=== PATIENT | female | born 1995 | race Caucasian/White ===

== ENCOUNTER → 2018-03-30 | Outpatient (CLI) | payer OTHER ==
--- NOTE | 2018-03-31 07:58 | MRI ---
EXAM DESCRIPTION: Lumbar Spine w/o Contrast : Magnetic Resonance Imaging. CLINICAL HISTORY: CHRONIC BACK PAIN COMPARISON: None. TECHNIQUE: Multiplanar, multiple standard sequences, non contrast MRI, lumbar spine. FINDINGS: At L3-4, L4-5, and L5-S1 disc space levels, AP canal diameter is 12 mm. This indicates mild central narrowing. 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 Normal signal in the disks, and disc spaces are preserved. Normal signal in the facet joints, and posterior flavum ligaments; no hypertrophy. Bilateral foramina are patent. Normal canal diameter at the remaining levels. Normal signal in the discs and disc spaces are preserved. Flavum ligaments and facet joints are unremarkable. Bilateral foramina are patent at these levels. Well-circumscribed hyperintense signal in the T11 vertebral body on T1 and T2 sequences, dark on FLAIR sequences, consistent with a hemangioma. Minimal kyphosis of the upper spine. Paravertebral soft tissues are unremarkable.. Normal marrow signal in the remaining vertebral bodies and the posterior elements. Vertebral bodies are not compressed at any level. IMPRESSION: 1. 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 Discs and posterior elements are unremarkable. 2. No other significant findings on this study. Electronically signed by: Tony Bush MD 03/31/2018 7:57 AM CDT
== END ==
LOC: MRI 10:00
PROVIDERS: ATTEND Family Medicine
DX: M54.16 Radiculopathy, lumbar region (principal); M54.9 Dorsalgia, unspecified

== ENCOUNTER → 2018-04-04 | Outpatient (CLI) | payer OTHER | LOC: LAB.O 17:25 | PROVIDERS: ATTEND Family Medicine | DX: N91.2 Amenorrhea, unspecified (principal); Z33.1 Pregnant state, incidental ==

== ENCOUNTER 2018-07-28 20:47 | Emergency (ER) | payer OTHER ==
[2018-07-28 21:29] VITALS: TEMP 96.7
--- NOTE | 2018-07-28 21:43 | ED.PDOC ---
History of Present Illness - General Chief Complaint: Syncope/Near Syncope Stated Complaint: syncope Time Seen by Provider: 07/28/18 21:37 Source: patient, family Exam Limitations: no limitations - History of Present Illness Initial Comments: patient comes in today for syncope. Patient has had multiple episodes of syncope in the past and was diagnosed with postural orthostatic tachycardia syndrome. 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 Patient states this episode however lasted longer than usual and she was left afterwards with feeling dazed and confused for several minutes. Patient was taking a bath when she lost consciousness per her friend for several minutes. She had no loss of bowel or bladder. On awakening however she seemed to not be able to speak or open her eyes for several minutes. Patient states she was aware of what was going on but could not respond. She did not have any chest pain, shortness of breath, nausea or vomiting. She has a little bit of abdominal discomfort suprapubically that she has not had any contractions or vaginal bleeding. Positive movement. Patient states she is often had these episodes but when she called her OB doctor they did ask her to come to the emergency room. Timing/Prior Episodes: recent history Precipitating Factors: none Context: sitting, other - in bath Loss of Consciousness: prolonged (minutes) Current Symptoms: back to normal Allergies/Adverse Reactions: Allergies NO KNOWN ALLERGY Allergy (Verified 03/02/18 13:05) Review of Systems - Review of Systems Constitutional: States: no symptoms reported. Denies: chills, fever, weakness EENTM: States: nose congestion. Denies: ear pain, throat pain Respiratory: States: cough - better now but was sick this last week. Denies: short of breath, wheezing Cardiology: States: syncope Gastrointestinal/Abdominal: States: no symptoms reported. Denies: abdominal pain, constipation, diarrhea, nausea, vomiting Neurological: States: see HPI Past Medical History (General) - Patient Medical History Hx Seizures: No Hx Stroke: No Hx Dementia: No Hx Asthma: No Hx of COPD: No Hx Cardiac Disorders: No Hx Congestive Heart Failure: No Hx Pacemaker: No Hx Hypertension: No Hx Thyroid Disease: Yes Hx Diabetes: No Hx Gastroesophageal Reflux: No Hx Renal Disease: No Hx Cancer: No Hx of HIV: No Hx Hepatitis C: No Hx MRSA: No Surgical History: other - Vaccination History Hx Tetanus, Diphtheria Vaccination: No Hx Influenza Vaccination: No Hx Pneumococcal Vaccination: No - Social History Hx Tobacco Use: No Hx Chewing Tobacco Use: No Hx Alcohol Use: No Hx Substance Use: No Hx Substance Use Treatment: No Hx Depression: No Hx Physical Abuse: No Hx Emotional Abuse: No Hx Suspected Abuse: No - Female History Patient is a Female of Child Bearing Age (10 -59 yrs old): Yes Hx Last Menstrual Period: 01/30/18 Patient : Yes Hx Gestational Age: 20 Physical Exam - Physical Exam General Appearance: Alert, No apparent distress Eyes, Ears, Nose, Throat Exam: PERRL/EOMI, normal ENT inspection, TMs normal, pharynx normal Neck: non-tender, full range of motion, supple, normal inspection Cardiovascular/Respiratory: regular rate, rhythm, no M/R/G, normal peripheral pulses, no JVD, normal breath sounds Gastrointestinal/Abdominal: normal bowel sounds, non tender, soft Extremity: non-tender, normal inspection 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 Exam: normal hearing, normal speech Coordination/Gait: normal finger to nose, normal gait, negative Romberg's sign Motor/Sensory: no motor deficit, no sensory deficit Skin Exam: normal color Progress - Progress Progress: 07/28/18 23:27 patient is asymptomatic now and will let her be discharge home to follow up on Monday with her OB - Results/Orders Results/Orders: 07/28/18 21:37 EKG Assessment ONCE 07/28/18 21:45 EKG STAT Laboratory Results WBC 12.1 K/mm3 (4.8-10.8) H 07/28/18 21:45 RBC 3.69 M/mm3 (4.20-5.40) L 07/28/18 21:45 Hgb 11.1 gm/dL (12.0-16.0) L 07/28/18 21:45 Hct 33.0 % (36.0-47.0) L 07/28/18 21:45 MCV 89.3 fl (81.0-99.0) 07/28/18 21:45 MCH 30.0 pg (27.0-31.0) 07/28/18 21:45 MCHC 33.7 g/dL (33.0-37.0) 07/28/18 21:45 RDW 13.7 % (11.5-14.5) 07/28/18 21:45 Plt Count 293 K/mm3 (130-400) 07/28/18 21:45 MPV 8.1 fl (7.40-10.4) 07/28/18 21:45 Absolute Neuts (auto) 8.90 K/uL (1.8-6.8) H 07/28/18 21:45 Absolute Lymphs (auto) 2.40 K/uL (1.0-3.4) 07/28/18 21:45 Absolute Monos (auto) 0.60 K/uL (0.2-0.8) 07/28/18 21:45 Absolute Eos (auto) 0.20 K/uL (0.0-0.4) 07/28/18 21:45 Absolute Basos (auto) 0.10 K/uL (0.0-0.1) 07/28/18 21:45 Neutrophils % 73.7 % (42.0-78.0) 07/28/18 21:45 Lymphocytes % 19.9 % (20.0-50.0) L 07/28/18 21:45 Monocytes % 4.7 % (2.0-9.0) 07/28/18 21:45 Eosinophils % 1.3 % (1.0-5.0) 07/28/18 21:45 Basophils % 0.4 % (0.0-2.0) 07/28/18 21:45 Sodium 135 mmol/L (135-145) 07/28/18 21:45 Potassium 3.6 mmol/L (3.6-5.0) 07/28/18 21:45 Chloride 103 mmol/L (101-111) 07/28/18 21:45 Carbon Dioxide 24 mmol/L (21-31) 07/28/18 21:45 Anion Gap 11.6 (12-18) L 07/28/18 21:45 BUN < 5 mg/dL (7-18) L 07/28/18 21:45 Creatinine < 0.40 mg/dL (0.6-1.3) L 07/28/18 21:45 BUN/Creatinine Ratio 12.0 (10-20) 07/28/18 21:45 Random Glucose 89 mg/dL (70-105) 07/28/18 21:45 Serum Osmolality 266.5 mOsm/L (275-295) L 07/28/18 21:45 Calcium 9.1 mg/dL (8.4-10.2) 07/28/18 21:45 Total Bilirubin 0.3 mg/dL (0.2-1.0) 07/28/18 21:45 AST 16 IU/L (10-42) 07/28/18 21:45 ALT 16 IU/L (10-60) 07/28/18 21:45 Alkaline Phosphatase 56 IU/L (42-121) 07/28/18 21:45 Serum Total Protein 6.6 gm/dL (6.4-8.2) 07/28/18 21:45 Albumin 3.2 g/dl (3.2-5.5) 07/28/18 21:45 Globulin 3.4 gm/dL (2.3-3.5) 07/28/18 21:45 Albumin/Globulin Ratio 0.9 (1.1-1.9) L 07/28/18 21:45 Urine Color Yellow (Yellow) 07/28/18 22:25 Urine Appearance Clear (Clear) 07/28/18 22:25 Urine pH 6.5 (4.5-7.8) 07/28/18 22:25 Ur Specific [place] 1.010 (1.005-1.030) 07/28/18 22:25 Urine Protein Negative mg/dL 07/28/18 22:25 Urine Glucose (UA) Negative mg/dL (Negative) 07/28/18 22:25 Urine Ketones Negative mg/dL (NEGATIVE) 07/28/18 22:25 Urine Blood Negative (Negative) 07/28/18 22:25 Urine Nitrite Negative 07/28/18 22:25 Urine Bilirubin Negative (NEGATIVE) 07/28/18 22:25 Urine Urobilinogen 0.2 mg/dL (0.2-1.0) 07/28/18 22:25 Ur Leukocyte Esterase Trace (Negative) H 07/28/18 22:25 Urine RBC 1-3 /hpf 07/28/18 22:25 Urine WBC 1-3 /hpf 07/28/18 22:25 Ur Epithelial Cells 5-10 /hpf 07/28/18 22:25 Urine Bacteria Rare 07/28/18 22:25 - EKG/XRAY/CT EKG: Sinus, no ST T wave changes, nonspecific ST T wave Chg Comments: HR of 63 normal axis and normal QTC Departure - Departure Clinical Impression: Syncope Qualifiers: Syncope type: unspecified Qualified Code(s): R55 - Syncope and collapse Disposition: Discharge to Home or Self Care Condition: Good Departure Forms: ED Discharge - Pt. Copy, Patient Portal Self Enrollment Additional Instructions: follow up with OB on Monday. return to ER for altered LOC, abdominal pain, vaginal bleeding
[2018-07-28 21:55] VITALS: O2SAT 96
[2018-07-28 23:32] VITALS: BP 107/69
== END 2018-07-28 23:32 | disposition home or self-care (01) ==
LOC: ER 20:47
DX: O99.89 Other specified diseases and conditions complicating pregnancy, childbirth and the puerperium (principal); R55 Syncope and collapse; O99.280 Endocrine, nutritional and metabolic diseases complicating pregnancy, unspecified trimester; E07.9 Disorder of thyroid, unspecified; Z3A.00 Weeks of gestation of pregnancy not specified